=== PATIENT | male | born 1970 | race Caucasian/White ===

== ENCOUNTER → 2017-08-30 | Outpatient (CLI) | payer OTHER ==
[~2017-08-30] MED LIST: ALBU8.5H2 IH; ALPR-557 PO; ALPR.25T PO; BUDE6HFA INH; CALC-656 PO; CLAR-19 PO; CLIN-62 PO; CYCL10TA9 PO; GABA-488 PO; HYDR-3714 PO; HYDR-3816 PO; HYDR1TAB66 PO; HYDR473S34 PO; IBP800T PO; LISI20TA PO; LURA60TA PO; MTF500T PO; MULT-974 PO; MULT1CAP27 PO; OXCA150T3 PO; OXYC-272 PO; POTA99TA15 PO; PRED10TA PO; SRTR100T PO
--- NOTE | 2017-08-30 11:32 | Diagnostic Imaging Report ---
EXAMINATION: 2 views of the left knee. INDICATION: Left knee pain. FINDINGS: No fracture, dislocation or radiopaque foreign body. No significant effusion is seen. No significant degenerative change or other abnormality seen at the articular surfaces. IMPRESSION: Unremarkable exam. Dictated by: Dictated on workstation # [id number]
== END ==
LOC: RAD 09:59
PROVIDERS: ATTEND Neuromusculoskeletal Medicine, Sports Medicine
DX: M25.562 Pain in left knee (principal)
CPT/HCPCS: 73560

== ENCOUNTER 2018-03-28 20:04 | Emergency (ER) | payer SELFPAY ==
[~2018-03-28] VITALS: Ht 175.3 cm; Wt 124.7 kg
[2018-03-28] MEDS ORDERED: TETANUS,DIPTH,PERTUSS P/F (BOOSTRIX) 0.5 ML VIAL IM ONE (20:15)
--- NOTE | 2018-03-28 20:53 | ED Upper Extremity ---
General Chief Complaint: Laceration Stated Complaint: LEFT HAND POINTER FINGER INJ Nursing Triage Note: Pt ambulates to ED to report at 1930 using a drill and drill bit slipped and went down the side of distal left index finger Nursing Sepsis Screen: No Definite Risk Source: patient Exam Limitations: no limitations History of Present Illness Date Seen by Provider: Mar 28, 2018 Time Seen by Provider: 20:46 Initial Comments Patient is a 47-year-old male who reports that around 1930 this evening he was using a drill with a drill bit and it slipped and went down the side of his left index finger. He reports that when he was cleaning it out there was metal in the wound. There is an approximately 2 cm abrasion to the left index finger. He is not up-to-date on his tetanus vaccine. Onset: just prior to arrival Pain/Injury Location: left 2nd finger Modifying Factors: Worse With Movement Allergies and Home Medications Allergies Coded Allergies: Penicillins (Verified Allergy, Unknown, 11/18/14) lorazepam (Verified Allergy, Unknown, 11/18/14) Home Medications Albuterol 8.5 Gm Hfa.aer.ad, 1 PUFF IH Q4H PRN for WHEEZING 1 PUFFS Prescribed by: EDI GANDHI on 11/18/14 1137 Alprazolam 0.5 Mg Tab, 0.5 MG PO BID PRN for ANXIETY, (Reported) Budesonide/Formoterol Fumarate 1 Inhaler Aero, 2 PUFF INH BID, (Reported) Calcium Carbonate/Vitamin D3 1 Each Tablet, 1 TAB PO BID, (Reported) Clarithromycin 500 Mg Tab, 500 MG PO BID, (Reported) 10 DAY SUPPLY FILLED 11-12-14 Cyclobenzaprine Hcl 10 Mg Tablet, 10 MG PO TID PRN for MUSCLE SPASMS, (Reported) Gabapentin 300 Mg Capsule, 300 MG PO AM, (Reported) Gabapentin 300 Mg Capsule, 600 MG PO HS, (Reported) TAKES 2 (300MG) CAPSULES Hydrocodone Bit/Acetaminophen 1 Tab Tablet, 1 TAB PO EVERY 4-6 HOURS PRN for PAIN, (Reported) Hydrocodone/Chlorphen Polis 473 Ml Aditi.12h.sr, 5 ML PO Q12H PRN for COUGH, ( Reported) Lisinopril 20 Mg Tablet, 20 MG PO DAILY, (Reported) Lurasidone HCl 60 Mg Tablet, 60 MG PO HS, (Reported) Metformin Hcl 500 Mg Tablet, 500 MG PO AM, (Reported) Metformin Hcl 500 Mg Tablet, 1,000 MG PO HS, (Reported) TAKES 2 (500MG) TABLETS Multivitamin 1 Each Tablet, 1 TAB PO DAILY, (Reported) Oxcarbazepine 150 Mg Tablet, 300 MG PO HS, (Reported) TAKES 2 (150MG) TABLETS Potassium Gluconate 99 Mg Tablet, 99 MG PO BID, (Reported) Prednisone 10 Mg Tablet, 0 PO UD 60mg daily for 1 day 50mg daily for 1 day 40mg daily for 1 day 30mg daily for 1 day 20mg daily for 1 day 10mg daily for 1 day then stop Prescribed by: EDI GANDHI on 11/18/14 1137 Sertraline Hcl 100 Mg Tab, 200 MG PO DAILY, (Reported) TAKES 2 (100MG) TABLETS Patient Home Medication List Home Medication List Reviewed: Yes Constitutional: see HPI; No chills, No fever EENTM: see HPI; No no symptoms reported, No ear discharge Respiratory: see HPI; No cough, No dyspnea on exertion Cardiovascular: see HPI; No chest pain, No edema Gastrointestinal: see HPI; No abdominal pain, No constipation Genitourinary: see HPI; No decreased output, No discharge Musculoskeletal: see HPI; No back pain, No gout Skin: see HPI, other (scrape to the left index finger.) Psychiatric/Neurological: See HPI; Denies Anxiety, Denies Depressed Past Fvfjqde-Ufxoza-Hxzyrg Hx Past Med/Social Hx: Reviewed Nursing Past Med/Soc Hx Patient Social History Alcohol Use: Denies Use Recreational Drug Use: No Smoking Status: Current Everyday Smoker Type Used: Cigarettes Recent Foreign Travel: No Contact w/Someone Who Travel: No Recent Infectious Disease Expo: No Recent Hopitalizations: No Immunizations Up To Date Tetanus Booster (TDap): Unknown PED Vaccines UTD: No Seasonal Allergies Seasonal Allergies: No Past Medical History Surgeries: Yes (LUMBAR, CARPAL/TARSAL TUNNEL) Respiratory: Yes Chronic Bronchitis, COPD Cardiac: Yes Neurological: No Reproductive Disorders: No Sexually Transmitted Disease: No HIV/AIDS: No Genitourinary: No Gastrointestinal: No Musculoskeletal: Yes (HERNIATED DISK, RUPTURED DISK) Chronic Back Pain Endocrine: Yes Diabetes, Non-Insulin dep HEENT: No Loss of Vision: Denies Hearing Impairment: Denies Cancer: No Psychosocial: No Sleep Difficulties, Anxiety, Bipolar, Violent Behavior, Depression Integumentary: No Blood Disorders: No Adverse Reaction/Blood Tranf: No Family Medical History Reviewed Nursing Family Hx Completed stroke 03 MOTHER, Onset:Unknown Family history: Arthritis 03 FATHER 09 BROTHER No Pertinent Family Hx Physical Exam Vital Signs Vital Signs - First Documented 03/28/18 20:09 Temp 97.0 Pulse 78 Resp 16 B/P (MAP) 117/85 (96) Pulse Ox 97 O2 Delivery Room Air Capillary Refill : Less Than 3 Seconds Height, Weight, BMI Height: 5'9.00" Weight: 275lbs. oz. 124.368846fb; BMI Method:Stated General Appearance: WD/WN, no apparent distress HEENT: PERRL/EOMI, normal ENT inspection, TMs normal, pharynx normal Neck: non-tender, full range of motion, supple, normal inspection Cardiovascular: regular rate, rhythm, no edema, no gallop, no JVD, no murmur Respiratory: chest non-tender, lungs clear, normal breath sounds, no respiratory distress, no accessory muscle use Gastrointestinal: normal bowel sounds, non tender, soft, no organomegaly, no pulsatile mass Back: normal inspection, no CVA tenderness, no vertebral tenderness Shoulder: normal inspection, non-tender, no evidence of injury, normal ROM Elbow/Forearm: normal inspection, non-tender, no evidence of injury, normal ROM , Bilateral Wrist: Yes normal inspection, Yes non-tender, Yes no evidence of injury, Yes normal ROM Progress/Results/Core Measures Results/Orders My Orders Medications Given in ED Vital Signs/I&O Blood Pressure Mean: 96 Progress Progress Note : Time: 21:00 Progress Note The wound was cleaned and irrigated. It was just a superficial abrasion. A Band- Aid was placed with triple antibiotic ointment. Departure Impression Primary Impression: Abrasion Disposition: HOME, SELF-CARE Condition: Stable/Unchanged Departure-Patient Inst. Decision time for Depature: 20:58 Referrals: [facility] (PCP) Primary Care Physician ADDIE STEELE (Family) Primary Care Physician Patient Instructions: Skin Abrasions (DC) Add. Discharge Instructions: Watch for signs of infection such as increased pain, redness, streaks going up the arm, fevers, drainage. Changes the dressing daily. Follow up with your doctor within 1 week for recheck. Return back to the emergency room for any concerns as needed. All discharge instructions reviewed with patient and/or family. Voiced understanding. KACY SOTELO Mar 28, 2018 20:53
[2018-03-28 21:09] VITALS: BP 117/85
--- NOTE | 2018-03-28 21:27 | Diagnostic Imaging Report ---
Clinical indication: Patient with laceration to second digit with drill bit. Exam: X-ray of the left second finger, 3 views. Comparison: None. Findings and impression: 1: There is a 1 mm focal dense area seen on the volar aspect of the second finger adjacent to the distal phalanx. Unknown if this area is seen on the skin surface or within the soft tissue. There is no other concern for radiodense foreign object. 2: There is no acute fracture or dislocation. 3: There is a focal calcification seen adjacent the volar aspect of the second PIP joint, likely chronic. There is soft tissue swelling about the second finger region. Dictated by: Dictated on workstation # [id number]
== END 2018-03-28 21:09 | disposition home or self-care (01) ==
LOC: EDUNIT# 20:04 → ER 20:06
DX: S60.411A Abrasion of left index finger, initial encounter (principal); J44.9 Chronic obstructive pulmonary disease, unspecified; E11.9 Type 2 diabetes mellitus without complications; F31.9 Bipolar disorder, unspecified; F41.9 Anxiety disorder, unspecified; F17.210 Nicotine dependence, cigarettes, uncomplicated; Z88.0 Allergy status to penicillin; Z88.8 Allergy status to other drugs, medicaments and biological substances; Z79.84 Long term (current) use of oral hypoglycemic drugs; W27.8XXA Contact with other nonpowered hand tool, initial encounter
CPT/HCPCS: 73140; 90471; 90715